=== PATIENT | male | born 1995 | race Two or more races ===

== ENCOUNTER 2019-08-12 14:49 | Emergency (ER) | payer OTHER ==
[~2019-08-12] VITALS: Ht 165.1 cm; Wt 61.2 kg
[2019-08-12 14:54] VITALS: BP 147/84
--- NOTE | 2019-08-12 15:03 | NUR ---
ED Nurse Note: patient walked into ED from work, c/o right lower posterior back/rib pain due to slip and fell from stairs at work, landed on the right lower posterior back around 1330. patient is alert awake x4 ambulatory, breathing unlabored and even, speaking in full sentences.
[2019-08-12] MEDS ORDERED: IBUPROFEN600 MG ORAL ×2 (16:41→17:04)
[2019-08-12 16:50] VITALS: BP 147/84
--- NOTE | 2019-08-12 16:50 | NUR ---
ER DISCHARGE NOTE: Patient is cleared to be discharged per YVES MILLER, pt is aox4, on room air, with stable vital signs. pt was given dc and prescription instructions, pt was able to verbalize understanding, pt id band removed without complications. pt is able to ambulate with steady gait. pt took all belongings.
--- NOTE | 2019-08-12 18:43 | Emergency Room Report ---
History of Present Illness General Chief Complaint: Lower Back Pain or Injury Source: Patient Present Illness HPI Patient reports that earlier today while he was walking down stairs he tripped and fell forward reports that it was approximately 8 steps He complains of pain to the right hip area Denies any midline pain denies any chest pain denies any head injury or loss of consciousness pain is 5 out of 10 worse with touch patient is ambulatory Allergies: Coded Allergies: No Known Allergies (Unverified , 08/12/19) Patient History Past Medical History: see triage record Reviewed Nursing Documentation: PMH: Agreed; PSxH: Agreed Nursing Documentation-PMH Past Medical History: No Stated History Review of Systems All Other Systems: negative except mentioned in HPI Physical Exam Vital Signs Date Time Temp Pulse Resp B/P (MAP) Pulse Ox O2 Delivery O2 Flow Rate FiO2 08/12/19 14:54 98.2 53 19 147/84 100 Room Air Sp02 EP Interpretation: reviewed, normal General Appearance: well appearing, no apparent distress Head: normocephalic, atraumatic Eyes: bilateral eye PERRL, bilateral eye EOMI ENT: normal pharynx Neck: supple Respiratory: lungs clear Cardiovascular #1: regular rate, rhythm Gastrointestinal: non tender, soft Musculoskeletal: other - Tender on palpation of the right posterior superior iliac crest region no obvious hematoma or ecchymosis, otherwise ambulatory without focal deficit Neurologic: alert, oriented x3, responsive Skin: no rash Lymphatic: no adenopathy Medical Decision Making Diagnostic Impression: Primary Impression: contusion ER Course Given the history and presentation x-ray imaging is obtained no obvious acute fractures are noted patient is ambulatory And with the exam at this time appears to be appropriate for close outpatient follow-up Other X-Ray Diagnostic Results Other X-Ray Diagnostic Results : X-Ray ordered: Pelvic # of Views/Limited Vs Complete: 1 View Indication: Pain EP Interpretation: Yes Interpretation: no dislocation, no soft tissue swelling, no fractures Impression: No acute disease Electronically Signed by: Rey Pascual DO Last Vital Signs Date Time Temp Pulse Resp B/P (MAP) Pulse Ox O2 Delivery O2 Flow Rate FiO2 08/12/19 16:51 98.2 08/12/19 16:50 53 19 147/84 100 Room Air Status: improved Disposition: HOME, SELF-CARE Condition: Improved Scripts Ibuprofen* (MOTRIN*) 600 Mg Tablet 600 MG ORAL Q8H PRN for For Pain, #20 TAB 0 Refills Prov: Rey Pascual DO 08/12/19 Ibuprofen* (MOTRIN*) 600 Mg Tablet 600 MG ORAL Q8H PRN for For Pain, #20 TAB 0 Refills Prov: Rey Pascual DO 08/12/19 Referrals: [facility],REFERRING (PCP) Patient Instructions: Contusion, [id number], Back Pain, Adult Additional Instructions: Patient is provided with the discharge instructions notified to follow up with primary doctor in the next 2-3 days otherwise return to the er with any worsening symptoms. Please note that this report is being documented using DRAGON technology. This can lead to erroneous entry secondary to incorrect interpretation by the dictating instrument. Rey Pascual DO Aug 12, 2019 18:43
--- NOTE | 2019-08-13 11:46 | Diagnostic Imaging Report ---
Indication: Pain, trauma Technique: One view of the pelvis Comparison: none Findings: No acute fractures. No dislocations. The joint spaces are preserved. Impression: Negative
== END 2019-08-12 16:50 | disposition home or self-care (01) ==
LOC: EMR 15:30
DX: S70.01XA Contusion of right hip, initial encounter (principal); W01.0XXA Fall on same level from slipping, tripping and stumbling without subsequent striking against object, initial encounter; Y92.9 Unspecified place or not applicable
CPT/HCPCS: 72170; 99283